=== PATIENT | male | born 1960 | race African-American/Black ===

== ENCOUNTER 2016-03-15 07:40 | Day surgery (SDC) | payer OTHER ==
[~2016-03-15] VITALS: Ht 193 cm; Wt 127.0 kg
[~2016-03-15 07:40] MED LIST: AMLODIPINE BESYL5 MG PO; COMBIVENT RESPIM4 GM IH; HYDROCHLOROTHIA25 MG PO; Hydrodiuril,Oretic,E PO; LISINOPRIL20 MG PO; MOBIC7.5 MG PO; MOTRIN800 MG PO; NOHOMEMEDS; PERCOCET 5/31 TABLET PO; POTASSIUM GLUCO2 MEQ PO; POTASSIUM GLUCONATE PO; ZANAFLEX2 M1 PO; ZANAFLEX4 M1 PO; Zestril,Prinivil PO
== END 2016-03-15 09:15 | disposition home or self-care (01) ==
LOC: PAIN 07:40 → SDC 08:00 → PAIN 09:15
PROC: 3E0S33Z Introduction of Anti-inflammatory into Epidural Space, Percutaneous Approach (ICD-10-PCS; principal; 2016-03-15)
DX: M54.13 Radiculopathy, cervicothoracic region (principal); M50.23 Other cervical disc displacement, cervicothoracic region; F41.1 Generalized anxiety disorder; M50.222 Other cervical disc displacement at C5-C6 level; M53.3 Sacrococcygeal disorders, not elsewhere classified; M19.90 Unspecified osteoarthritis, unspecified site; I10 Essential (primary) hypertension
CPT/HCPCS: J1030; J2250; J3010

== ENCOUNTER 2016-11-17 13:32 | Day surgery (SDC) | payer OTHER ==
[~2016-11-17] VITALS: Ht 193 cm; Wt 125.6 kg
[~2016-11-17 13:32] MED LIST changes: +DULERA 100 MCG/13 GM IH; +NEURONTIN100 MG PO; +NORVASC10 MG PO; +VITAMIN B-6100 MG PO; +ZESTORETIC 20-1 EAC1 PO; +ZYBAN 150 MG T150 MG PO
== END 2016-11-17 15:25 | disposition home or self-care (01) ==
LOC: PAIN 13:32 → SDC 14:15 → PAIN 15:25
DX: M16.12 Unilateral primary osteoarthritis, left hip (principal); M17.0 Bilateral primary osteoarthritis of knee; M54.12 Radiculopathy, cervical region; M54.16 Radiculopathy, lumbar region; M53.3 Sacrococcygeal disorders, not elsewhere classified; I10 Essential (primary) hypertension; J44.9 Chronic obstructive pulmonary disease, unspecified; F41.8 Other specified anxiety disorders; F17.200 Nicotine dependence, unspecified, uncomplicated; Z79.891 Long term (current) use of opiate analgesic
CPT/HCPCS: J1030; J2250; J2405; J3010; S0020

== ENCOUNTER 2017-01-10 07:42 | Day surgery (SDC) | payer OTHER ==
[~2017-01-10] VITALS: Ht 193 cm; Wt 127.0 kg
[~2017-01-10 07:42] MED LIST changes: +LO-DOSE ASPIRIN81 M1 PO
== END 2017-01-10 09:58 | disposition home or self-care (01) ==
LOC: PAIN 07:42 → SDC 08:30 → PAIN 09:58
DX: M47.26 Other spondylosis with radiculopathy, lumbar region (principal); M54.5 Low back pain; G89.29 Other chronic pain; M54.12 Radiculopathy, cervical region; M53.3 Sacrococcygeal disorders, not elsewhere classified; I10 Essential (primary) hypertension; J44.9 Chronic obstructive pulmonary disease, unspecified; F41.8 Other specified anxiety disorders; E66.9 Obesity, unspecified; Z68.34 Body mass index [BMI] 34.0-34.9, adult; F17.200 Nicotine dependence, unspecified, uncomplicated; Z79.891 Long term (current) use of opiate analgesic
CPT/HCPCS: J1030; J1885; J2250; J3010; S0020

== ENCOUNTER 2017-01-17 07:41 | Day surgery (SDC) | payer OTHER ==
[~2017-01-17] VITALS: Ht 193 cm; Wt 127.2 kg
== END 2017-01-17 09:30 | disposition home or self-care (01) ==
LOC: PAIN 07:41 → SDC 08:30 → PAIN 09:30
DX: M47.26 Other spondylosis with radiculopathy, lumbar region (principal); M54.5 Low back pain; G89.29 Other chronic pain; M53.3 Sacrococcygeal disorders, not elsewhere classified; M17.0 Bilateral primary osteoarthritis of knee; M54.12 Radiculopathy, cervical region; J44.9 Chronic obstructive pulmonary disease, unspecified; I10 Essential (primary) hypertension; M79.7 Fibromyalgia; F41.8 Other specified anxiety disorders; E66.9 Obesity, unspecified; Z68.34 Body mass index [BMI] 34.0-34.9, adult; F17.200 Nicotine dependence, unspecified, uncomplicated; Z79.891 Long term (current) use of opiate analgesic
CPT/HCPCS: 93005; J1030; J2250; J2405; J3010; S0020

== ENCOUNTER 2017-03-21 10:56 | Day surgery (SDC) | payer OTHER ==
[~2017-03-21] VITALS: Ht 193 cm; Wt 111.1 kg
[~2017-03-21 10:56] MED LIST changes: +IMDUR30 MG PO; +LIPITOR40 MG PO
== END 2017-03-21 13:19 | disposition home or self-care (01) ==
LOC: PAIN 10:56 → SDC 11:30 → PAIN 13:19
DX: M50.123 Cervical disc disorder at C6-C7 level with radiculopathy (principal); M47.26 Other spondylosis with radiculopathy, lumbar region; M53.3 Sacrococcygeal disorders, not elsewhere classified; M17.0 Bilateral primary osteoarthritis of knee; J44.9 Chronic obstructive pulmonary disease, unspecified; R00.1 Bradycardia, unspecified; I10 Essential (primary) hypertension; F41.9 Anxiety disorder, unspecified; Z79.82 Long term (current) use of aspirin
CPT/HCPCS: J1100; J2250; J3010

== ENCOUNTER 2017-05-01 07:45 | Day surgery (SDC) | payer OTHER ==
[~2017-05-01] VITALS: Ht 193 cm; Wt 129.0 kg
== END 2017-05-01 15:50 | disposition home or self-care (01) ==
LOC: CATH 07:45
DX: R07.89 Other chest pain (principal); R06.09 Other forms of dyspnea; I25.10 Atherosclerotic heart disease of native coronary artery without angina pectoris; E66.01 Morbid (severe) obesity due to excess calories; Z68.34 Body mass index [BMI] 34.0-34.9, adult; I10 Essential (primary) hypertension; E78.5 Hyperlipidemia, unspecified; J44.9 Chronic obstructive pulmonary disease, unspecified; Z87.891 Personal history of nicotine dependence
CPT/HCPCS: 93005; C1769; C1887; J1644; J2250; J3010; J7040

== ENCOUNTER 2017-06-13 12:53 | Day surgery (SDC) | payer OTHER ==
[~2017-06-13] VITALS: Ht 193 cm; Wt 131.5 kg
== END 2017-06-13 14:50 | disposition home or self-care (01) ==
LOC: PAIN 12:53
PROC: B01B1ZZ Fluoroscopy of Spinal Cord using Low Osmolar Contrast (ICD-10-PCS; principal; 2017-06-13)
PROC: 3E0S33Z Introduction of Anti-inflammatory into Epidural Space, Percutaneous Approach (ICD-10-PCS; principal; 2017-06-13)
DX: M54.12 Radiculopathy, cervical region (principal); M50.20 Other cervical disc displacement, unspecified cervical region
CPT/HCPCS: J1100; J2250; J2405